=== PATIENT | female | born 1950 | race Two or more races ===

== ENCOUNTER 2020-11-14 07:30 | Inpatient (IN) | payer OTHER ==
[~2020-11-14] VITALS: Ht 152.4 cm; Wt 64.4 kg
[2020-11-14] MEDS ORDERED: CARDURA XL4 MG PO (09:40)
[2020-11-14] MEDS ORDERED: CARDIZEM CD240 MG PO (09:40)
[2020-11-14] MEDS ORDERED: VASOTEC20 M1 PO (09:41)
[2020-11-14] MEDS ORDERED: HYDROCHLOROTHIA25 MG PO (09:41)
[2020-11-14] MEDS ORDERED: ADULT LOW DOSE81 M1 PO (09:41)
[2020-11-14] MEDS ORDERED: PLAVIX75 MG PO (09:41)
[2020-11-14] MEDS ORDERED: JARDIANCE25 MG PO (09:42)
[2020-11-14] MEDS ORDERED: JANUVIA100 MG PO (09:42)
[2020-11-14] MEDS ORDERED: LANTUS SOL100 UNIT/1 (09:42)
[2020-11-14] MEDS ORDERED: CRESTOR40 MG PO (09:43)
[2020-11-19] MEDS ORDERED: EZETIMIBE10 MG (11:09)
== END 2020-11-20 18:53 | disposition home or self-care (01) | DRG 747 ==
LOC: O/R 11-19 06:37 → SURH 11-19 07:30 → OB/GYN 11-19 15:58
PROVIDERS: ADMIT Specialist; ATTEND Specialist
PROC: 0UBG8ZZ Excision of Vagina, Via Natural or Artificial Opening Endoscopic (ICD-10-PCS; principal; 2020-11-19 13:00)
DX: C52 Malignant neoplasm of vagina (principal); N89.3 Dysplasia of vagina, unspecified; I11.9 Hypertensive heart disease without heart failure; I25.10 Atherosclerotic heart disease of native coronary artery without angina pectoris; E11.9 Type 2 diabetes mellitus without complications; E78.5 Hyperlipidemia, unspecified

== ENCOUNTER 2020-11-14 09:12 | Outpatient (CLI) | payer OTHER ==
[2020-11-14] MEDS ORDERED: CARDURA XL4 MG PO (09:40)
[2020-11-14] MEDS ORDERED: CARDIZEM CD240 MG PO (09:40)
[2020-11-14] MEDS ORDERED: ADULT LOW DOSE81 M1 PO (09:41)
[2020-11-14] MEDS ORDERED: VASOTEC20 M1 PO (09:41)
[2020-11-14] MEDS ORDERED: PLAVIX75 MG PO (09:41)
[2020-11-14] MEDS ORDERED: HYDROCHLOROTHIA25 MG PO (09:41)
[2020-11-14] MEDS ORDERED: JANUVIA100 MG PO (09:42)
[2020-11-14] MEDS ORDERED: JARDIANCE25 MG PO (09:42)
[2020-11-14] MEDS ORDERED: LANTUS SOL100 UNIT/1 (09:42)
[2020-11-14] MEDS ORDERED: CRESTOR40 MG PO (09:43)
== END 2020-11-14 14:42 | disposition home or self-care (01) ==
LOC: LAB 09:12
PROVIDERS: ATTEND Specialist
DX: Z87.411 Personal history of vaginal dysplasia (principal)